=== PATIENT | female | born 1935 | race Caucasian/White ===

== ENCOUNTER 2017-08-23 11:23 | Inpatient (IN) | payer OTHER, MEDICAID ==
[~2017-08-23] VITALS: Ht 157.5 cm; Wt 72.6 kg
[~2017-08-23 11:23] MED LIST: ASPI81EC98 PO; ATOR20TA PO; CALC500T31 PO; CARI350T PO; DEXILANT PO; DOCU-7 PO; DOXA1TAB2 PO; FLUT27.5 NS; LEVO0.1T19 PO; LORA10TA60 PO; MONT10TA35 PO; NORT10CA PO; OLME40TA11 PO; OMEP20EC6 PO; PRE.625 PO; PREG100C PO; SUMA100T1 PO; TEMA30CA23 PO; VIC PO; [UNRECOGNIZED DRUG - CODE] PO; [UNRECOGNIZED DRUG - CODE] PO; [UNRECOGNIZED DRUG - CODE] PO
--- NOTE | 2017-08-23 11:27 | NUR ---
CALLED CT FOR CODE BRAIN PER MD FOOTE
[2017-08-23 11:30] VITALS: BP 209/85
--- NOTE | 2017-08-23 11:34 | NUR ---
82Y/F BIB DAUGHTER; COMPLAINS OF LEFT SIDED WEAKNESS, POSSIBLE STROKE. PATIENT HISORY OF TIA A MONTH AGO AND HTN. AAOX4 WITH EVEN AND STEADY; PATIENT STATES PAIN OF 0/10 AT THIS TIME; PATIENT POSITIONED FOR COMFORT; HOB ELEVATED; BEDRAILS UP X2; BED DOWN. ER MD MADE AWARE OF PT STATUS.
[2017-08-23] MEDS ORDERED: ESCI20TA PO (11:38)
[2017-08-23] MEDS ORDERED: ALEN70SO1 PO (11:38)
[2017-08-23] MEDS ORDERED: [UNRECOGNIZED DRUG - CODE] PO (11:38)
[2017-08-23] MEDS ORDERED: PAM25 PO (11:38)
[2017-08-23] MEDS ORDERED: hydrALAZINE 20 MG/ML VIAL IVP ONE (11:45)
[2017-08-23 12:05] LABS: BASOPHILS # (AUTO) 0.1 K/uL (0.00-0.22); BASOPHILS % (AUTO) 1.5 % (0.0-2.0); EOSINOPHILS # (AUTO) 0.2 K/uL (0-0.4); EOSINOPHILS % (AUTO) 3.2 % (0.0-4.0); HEMATOCRIT 39.7 % (36-48); HEMOGLOBIN 13.2 g/dL (12.0-16.0); LYMPHOCYTES # (AUTO) 2.8 K/uL (2.5-16.5); LYMPHOCYTES % (AUTO) 41.5 % (20.5-51.1); MEAN CORPUSCULAR HEMOGLOBIN 31 pg (27-31); MEAN CORPUSCULAR HGB CONC 33 g/dL (33-37); MEAN CORPUSCULAR VOLUME 94.3 fL (80-94); MONOCYTES # (AUTO) 0.6 K/uL (0.8-1.0); MONOCYTES % (AUTO) 9.4 % (1.7-9.3); NEUTROPHILS % (AUTO) 44.4 % (42.2-75.2); PLATELET COUNT (AUTO) 217 K/uL (140-450); RED BLOOD CELL COUNT(AUTO) 4.21 MIL/uL (4.20-5.40); RED CELL DISTRIBUTION WIDTH 12.2 % (11.6-13.7); WHITE BLOOD COUNT (AUTO) 6.7 K/uL (4.8-10.8)
[2017-08-23 12:16] LABS: PROTHROMBIN TIME 9.6 secs (10.8-13.4)
[2017-08-23] MEDS ORDERED: ASPIRIN 325 MG TAB PO ONE (12:25)
[2017-08-23] MEDS ORDERED: LABETALOL 100 MG/20 ML VIAL IV STA (13:03)
--- NOTE | 2017-08-23 13:14 | NUR ---
Patient will be admitted to care of DR. RODRIGUEZ. Admited to MS. Will go to [id number]. Belongings list completed. Report to ENEIDA HIGGINBOTHAM.
--- NOTE | 2017-08-23 13:15 | NUR ---
PT ARRIVED ON UNIT VIA GURNEY BUT PATIENT WAS ABLE TO AMBULATE FROM GURNEY TO BED WITHOUT DIFFICULTIES. TELEMONITOR APPLIED. VS GATHERED. MRSA SWAB COLLECTED. PATIENT ALERT AND ABLE TO MAKE NEEDS KNOWN. NO ACUTE DISTRESS NOTED AT THIS TIME. PATIENT STATED 8/10 PAIN TO BACK BUT IS BASELINE AND STATED SHE DID NOT NEED MEDICATION AT THIS TIME. VS ARRIVING ON UNIT 200/84 AND HAD JUST RECEIVED APRESOLINE AND LABETALOL IN ER WILL CONT TO MONITOR. PATIENT STATED HX OF TIA, HTN, RHEUMATOID ARTHRITIS, OA, HYPOTHYROIDISM, COPD, GOUT, TMJ. PATIENT STATED RIGHT HAND TINGLING HANG BRIDGE MECHANIC UNEQUAL RIGHT HAND STRONGER. FOOT PUSHES AND PULL EQUAL. PERRLA.3MM. PATIENT WITH LAC 20G SL. PATENT AND INTACT. PATIENT ORIENTED TO ROOM. SKIN INTACT.PLAN OF CARE DISCUSSED WITH PATIENT. CALL LIGHT WITHIN REACH. WILL CONT TO MONITOR.
[2017-08-23] MEDS ORDERED: LORazepam 2 MG/ML VIAL IVP PRN (13:35)
[2017-08-23] MEDS ORDERED: ONDANSETRON 4 MG/2 ML VIAL IVP PRN (13:35)
[2017-08-23] MEDS ORDERED: [UNRECOGNIZED DRUG - OTHER] PO SCH (13:35)
[2017-08-23] MEDS ORDERED: SUMAtriptan 50 MG TAB PO PRN (13:35)
[2017-08-23] MEDS ORDERED: ACETAMINOPHEN PO SCH ×2 (13:35→17:00)
[2017-08-23 13:36] LABS: CREATINE KINASE MB 0.5 ng/mL (0-3.6)
[2017-08-23 14:00] VITALS: BP 190/80
[2017-08-23 14:31] LABS: ANION GAP 16.7 (8-16); CARBON DIOXIDE 22.3 mmol/L (21-32); CHLORIDE 108 mmol/L (98-107); GLUCOSE 93 mg/dL (74-106); SODIUM SERUM 143 mmol/L (136-145)
[2017-08-23 14:32] LABS: UREA NITROGEN, BLOOD 32 mg/dL (7-18)
[2017-08-23 14:46] LABS: ALBUMIN 3.3 g/dL (3.4-5.0); ASPARTATE AMINOTRANSFERASE 33 U/L (15-37); CREATININE 1.3 mg/dL (0.6-1.3); TOTAL BILIRUBIN 0.2 mg/dL (0.0-1.0)
--- NOTE | 2017-08-23 15:30 | NUR ---
PATIENT ALERT AND ABLE TO MAKE NEEDS KNOWN. PATIENT GIVEN IMATREX FOR MIRGRAINE. WILL FOLLOW UP. PATIENT BP AT THIS TIME 184/72 HR 59. WILL CONT TO MONITOR.
[2017-08-23 16:00] VITALS: BP 173/73
--- NOTE | 2017-08-23 16:00 | NUR ---
PATIENT ALERT AND ABLE TO MAKE NEEDS KNOWN. REQUESTING MEDICATIONS. WILL ADMINISTERED SCHEDULED MEDICATIONS. BP 173/73 HR 59. WILL CONT TO MONITOR.
[2017-08-23] MEDS: ACETAMINOPHEN EXTRA STRENGTH 500 MG TAB PO SCH ×2 (16:40→21:13)
[2017-08-23] MEDS: CARISOPRODOL 350 MG TAB PO SCH (16:40)
[2017-08-23] MEDS ORDERED: OXYCODONE HCL PO SCH (17:00)
--- NOTE | 2017-08-23 18:09 | NUR ---
ECHO IN PROCESS AT THIS TIME. NO ACUTE DISTRESS. CALL LIGHT WITHIN REACH. WILL CONT TO MONITOR.
--- NOTE | 2017-08-23 19:30 | NUR ---
ENDORSED REPORT AT BEDSIDE FOR CONTINUITY OF CARE. PATIENT STABLE.
--- NOTE | 2017-08-23 19:35 | NUR ---
RECEIVED FROM AM RN IN BED AWAKE AND WITH FRIEND VISITING. ABLE TO VERBALIZE NEEDS WELL. A/O X 4. ROM X 4. CARE PLANS FOR THE NIGHT DISCUSSED WITH HER. CALL LIGHT WITH IN REACH AND DX. TRANSIENT ISCHEMIA. ENCOURAGED TO CALL FOR ANY HELP OR ANY PAIN SHE MIGHT HAVE.
[2017-08-23 19:56] VITALS: BP 148/62
[2017-08-23] MEDS: DOXAZOSIN 2 MG TAB PO SCH (21:00)
[2017-08-23] MEDS ORDERED: CARISOPRODOL 350 MG TAB PO SCH (22:45)
--- NOTE | 2017-08-23 22:45 | NUR ---
TALKED WITH MD RODRIGUEZ,Bobby RE: PT. WANTING TO HAVE HER SOMA 350 MG. "I TAKE IT AT HOME 4 TIMES A DAY" ORDERED 1X NOW AND STATED "NO" IT WILL ONLY BE 3 TIMES A DAY. INFORMED HIM THAT WE HAVE NO AVAILABLE CARDURA AND IF HE CAN ORDER A DIFFERENT BRAND WITH SAME ACTION. " NO, LEAVE IT IS AND GIVE FIRST DOSE IN A.M. " NIGHTMAN AWARE. PT. AWARE OF IT TOO.
[2017-08-24 01:08] VITALS: BP 149/60
[2017-08-24 04:40] VITALS: BP 174/73
--- NOTE | 2017-08-24 04:45 | NUR ---
PT. AWAKE STILL AT THIS TIME AND REQUESTED TO HAVE SOMETHING TO RELAX HER. WILL MEDICATE WITH ATIVAN IVP ORDERED.
[2017-08-24] MEDS: LEVOTHYROXINE 0.1 MG TAB PO SCH (05:44)
[2017-08-24] MEDS: PANTOPRAZOLE 40 MG TABEC PO SCH (05:45)
--- NOTE | 2017-08-24 06:00 | NUR ---
PT. SLEPT WELL AFTER ATIVAN IVP GIVEN REQUESTED. WAKES UP WHEN TOUCHED. NO PAIN COMPLAINTS.
[2017-08-24 06:29] LABS: BASOPHILS # (AUTO) 0.1 K/uL (0.00-0.22); BASOPHILS % (AUTO) 0.8 % (0.0-2.0); EOSINOPHILS # (AUTO) 0.2 K/uL (0-0.4); EOSINOPHILS % (AUTO) 2.6 % (0.0-4.0); HEMATOCRIT 38.3 % (36-48); HEMOGLOBIN 12.9 g/dL (12.0-16.0); LYMPHOCYTES % (AUTO) 27.2 % (20.5-51.1); MEAN CORPUSCULAR HEMOGLOBIN 32 pg (27-31); MEAN CORPUSCULAR HGB CONC 34 g/dL (33-37); MEAN CORPUSCULAR VOLUME 93.9 fL (80-94); MONOCYTES # (AUTO) 0.5 K/uL (0.8-1.0); MONOCYTES % (AUTO) 6.8 % (1.7-9.3); NEUTROPHILS # (AUTO) 4.5 K/uL (1.8-7.7); NEUTROPHILS % (AUTO) 62.6 % (42.2-75.2); PLATELET COUNT (AUTO) 214 K/uL (140-450); RED BLOOD CELL COUNT(AUTO) 4.08 MIL/uL (4.20-5.40); RED CELL DISTRIBUTION WIDTH 12.2 % (11.6-13.7); WHITE BLOOD COUNT (AUTO) 7.2 K/uL (4.8-10.8)
[2017-08-24 07:03] LABS: MAGNESIUM 1.9 mg/dL (1.8-2.4); PHOSPHORUS 3.1 mg/dL (2.5-4.9)
[2017-08-24 08:00] VITALS: BP 171/118
--- NOTE | 2017-08-24 08:00 | NUR ---
INITIAL ASSESSMENT PERFORMED. PATIENT ALERT AND ABLE TO MAKE NEEDS KNOWN. NO ACUTE DISTRESS NOTED AT THIS TIME. PATIENT STATED PAIN AT BASELINE AND DID NOT NEED ANY PAIN MEDICATION AT THIS TIME. PATIENT STATED LEFT HAND TINGLING AND NUMB BUT HAS IMPROVED SINCE YESTERDAY. FOOT PUSHES AND PULL EQUAL. PERRLA.3MM. PATIENT WITH LAC 20G SL. PATENT AND INTACT. PATIENT ORIENTED TO ROOM. SKIN INTACT.PLAN OF CARE DISCUSSED WITH PATIENT. CALL LIGHT WITHIN REACH. WILL CONT TO MONITOR.
[2017-08-24] MEDS ORDERED: NORTRIPTYLINE 25 MG CAP PO SCH (09:00)
[2017-08-24] MEDS ORDERED: ECOTRIN 81 MG TABEC PO SCH (09:00)
[2017-08-24] MEDS ORDERED: ALENDRONATE SODIUM 70 MG PO SCH (09:00)
[2017-08-24] MEDS ORDERED: ASPIRIN 325 MG TABEC PO SCH (09:00)
[2017-08-24] MEDS: CARISOPRODOL 350 MG TAB PO SCH ×3 (09:01→17:32)
[2017-08-24] MEDS: ACETAMINOPHEN EXTRA STRENGTH 500 MG TAB PO SCH ×4 (09:01→21:56)
[2017-08-24] MEDS: NORTRIPTYLINE 10 MG CAP PO SCH (09:02)
[2017-08-24] MEDS: ATORVASTATIN 20 MG TAB PO SCH (09:02)
[2017-08-24] MEDS: ESTROGENS CONJUGATED 0.625 MG TAB PO SCH (09:02)
[2017-08-24] MEDS: ESCITALOPRAM 20 MG TAB PO SCH (09:03)
[2017-08-24] MEDS: LOSARTAN 50 MG TAB PO SCH (09:03)
[2017-08-24] MEDS: COLCHICINE 0.6 MG TAB PO SCH (09:04)
[2017-08-24] MEDS: FLUTICASONE NASAL 50 MCG/ACTUATION 16 GM BTL NS SCH (09:04)
[2017-08-24] MEDS: LORATADINE 10 MG TAB PO SCH (09:04)
--- NOTE | 2017-08-24 09:55 | NUR ---
PATIENT HAS BEEN SCREENED AND CATEGORIZED HIGH NUTRITION RISK. PATIENT WILL BE SEEN WITHIN 1-2 DAYS OF ADMISSION. 08/24/17 - 08/25/[address]
[2017-08-24] MEDS: DOXAZOSIN 2 MG TAB PO SCH ×2 (09:58→21:54)
--- NOTE | 2017-08-24 10:30 | NUR ---
PATIENT ALERT AND ABLE TO MAKE NEEDS KNOWN. NO ACUTE DISTRESS NOTED. NO NEUROLOGICAL CHANGES NOTED. PATIENT RESPONDS APPROPRIATELY TO QUESTIONS. WILL CONT TO MONITOR.
[2017-08-24] MEDS ORDERED: amLODIPine 5 MG TAB PO SCH (11:00)
[2017-08-24 12:00] VITALS: BP 126/56
--- NOTE | 2017-08-24 13:00 | NUR ---
PATIENT ALERT AND ABLE TO MAKE NEEDS KNOWN. NO ACUTE DISTRESS NOTED. RESTING IN BED. WILL CONT TO MONITOR.
--- NOTE | 2017-08-24 13:48 | NUR ---
DR DAWN CALLED TO [facility] CT OF HEAD STATING IT IS NOT NECESSARY, BECAUSE PATIENT IS STABLE AND ASSESSMENT IS WNL WITH THE EXCEPTION OF THE LEFT HAND TINGLING. WILL CONT TO MONITOR
--- NOTE | 2017-08-24 15:50 | NUR ---
08/24/17 RD INITIAL ASSESSMENT COMPLETED PLEASE REFER TO NUTRITION ASSESSMENT UNDER CARE ACTIVITY FOR ESTIMATED NUTRITIONAL NEEDS. 1. CONTINUE CARDIAC DIET TOLERATED 2. PROVIDED PT WITH GOUT AND CARDIAC DIET EDUCATION 3. RD TO FOLLOW-UP 5-7 DAYS, LOW RISK ERIC MENCH[address] RD
[2017-08-24 16:00] VITALS: BP 107/44
--- NOTE | 2017-08-24 16:30 | NUR ---
PATIENT ALERT AND ABLE TO MAKE NEEDS KNOWN. NO ACUTE DISTRESS NOTED. PATIENT RESTING IN BED. WILL CONT TO MONITOR.
--- NOTE | 2017-08-24 19:30 | NUR ---
ENDORSED REPORT TO SEWING MACHINE OPERATOR FLOORPERSON NURSE AT BEDSIDE FOR CONTINUITY OF CARE. PATIENT STABLE.
--- NOTE | 2017-08-24 19:35 | NUR ---
RECEIVED FROM AM NURSE SLEEPING. ABLE TO WAKE UP WHEN TOUCHED. NO COMPLAINTS AT THIS TIME. RE-ORIENTED TO CALL LIGHT USE AND TO CALL FOR ANY HELP SHE MAY NEED. TELEMETRY MONITORING. DENIES PAIN AT THIS TIME.
[2017-08-24] MEDS ORDERED: MONTELUKAST SODIUM 10 MG TAB PO SCH (21:00)
[2017-08-24 21:37] VITALS: BP 120/57
[2017-08-24] MEDS: METOPROLOL 25 MG TAB PO SCH (21:55)
--- NOTE | 2017-08-24 23:31 | NUR ---
PT. SLEEPING WELL. VITAL SIGNS TAKEN AND PT. WOKE UP . NO FURTHER COMPLAINTS DONE. TELEMETRY MONITORING. ABLE TO VERBALIZE NEEDS WELL.
[2017-08-25] VITALS: BP 119/56
--- NOTE | 2017-08-25 02:45 | NUR ---
SLEEPING. NO RESTLESSNESS. CALL LIGHT WITH IN REACH. TELEMETRY MONITORING.
[2017-08-25 04:00] VITALS: BP 105/45
--- NOTE | 2017-08-25 05:37 | NUR ---
PT. SEEN WALKING TOWARDS RESTROOM INSIDE ROOM. INDEPENDENT. VERBALIZES WELL..A FEBRILE. NO PAIN COMPLAINTS DONE THIS SHIFT.
[2017-08-25 05:42] LABS: BASOPHILS # (AUTO) 0.1 K/uL (0.00-0.22); BASOPHILS % (AUTO) 0.9 % (0.0-2.0); EOSINOPHILS # (AUTO) 0.2 K/uL (0-0.4); EOSINOPHILS % (AUTO) 3.5 % (0.0-4.0); HEMOGLOBIN 12.6 g/dL (12.0-16.0); MEAN CORPUSCULAR HEMOGLOBIN 32 pg (27-31); MEAN CORPUSCULAR HGB CONC 34 g/dL (33-37); MONOCYTES # (AUTO) 0.5 K/uL (0.8-1.0); MONOCYTES % (AUTO) 8.3 % (1.7-9.3); NEUTROPHILS % (AUTO) 52.3 % (42.2-75.2); PLATELET COUNT (AUTO) 214 K/uL (140-450); RED BLOOD CELL COUNT(AUTO) 3.98 MIL/uL (4.20-5.40); RED CELL DISTRIBUTION WIDTH 11.9 % (11.6-13.7); WHITE BLOOD COUNT (AUTO) 5.8 K/uL (4.8-10.8)
[2017-08-25] MEDS: LEVOTHYROXINE 0.1 MG TAB PO SCH (05:44)
[2017-08-25] MEDS: PANTOPRAZOLE 40 MG TABEC PO SCH (05:44)
--- NOTE | 2017-08-25 05:54 | NUR ---
PT. AWAKE AND ASSISTED TO RESTROOM RT HELPED TAKE OUT SEQUENTIALS FOR NOW. PT. INDEPENDENT. ABLE TO VERBALIZE NEEDS WELL.
[2017-08-25 06:28] LABS: ANION GAP 13.8 (8-16); CARBON DIOXIDE 25.4 mmol/L (21-32); CHLORIDE 108 mmol/L (98-107); CREATININE 1.3 mg/dL (0.6-1.3); GLUCOSE 110 mg/dL (74-106); POTASSIUM 4.2 mmol/L (3.5-5.1); SODIUM SERUM 143 mmol/L (136-145); UREA NITROGEN, BLOOD 29 mg/dL (7-18)
--- NOTE | 2017-08-25 07:30 | NUR ---
RECEIVED BEDSIDE REPORT FROM SENIOR GRANT WRITER NURSE. PATIENT IS AWAKE, ALERT AND ORIENTEDX4. NO COMPLAINTS AT THIS TIME. IV ON L AC 20G SALINE LOCK. IV IS CLEAN, DRY AND INTACT. NO SIGNS OF DISTRESS ON ROOM AIR. SKIN IS INTACT. CAR DEALER IN PLACE. SCDS IN PLACE. BED IN LOW POSITION. CALL LIGHT WITHIN REACH. WILL CONTINUE TO MONITOR THE PATIENT.
[2017-08-25 08:00] VITALS: BP 158/70
[2017-08-25] MEDS ORDERED: amLODIPine 5 MG TAB PO SCH (09:00)
[2017-08-25] MEDS ORDERED: ECOTRIN 81 MG TABEC PO SCH (09:00)
[2017-08-25] MEDS: FLUTICASONE NASAL 50 MCG/ACTUATION 16 GM BTL NS SCH (09:24)
[2017-08-25] MEDS: CARISOPRODOL 350 MG TAB PO SCH ×2 (09:25→13:42)
[2017-08-25] MEDS: LOSARTAN 50 MG TAB PO SCH (09:25)
[2017-08-25] MEDS: ESCITALOPRAM 20 MG TAB PO SCH (09:26)
[2017-08-25] MEDS: NORTRIPTYLINE 10 MG CAP PO SCH (09:26)
[2017-08-25] MEDS: LORATADINE 10 MG TAB PO SCH (09:27)
[2017-08-25] MEDS: ATORVASTATIN 20 MG TAB PO SCH (09:27)
[2017-08-25] MEDS: ACETAMINOPHEN EXTRA STRENGTH 500 MG TAB PO SCH ×2 (09:27→13:42)
[2017-08-25] MEDS: COLCHICINE 0.6 MG TAB PO SCH (09:28)
[2017-08-25] MEDS: METOPROLOL 25 MG TAB PO SCH (09:28)
[2017-08-25] MEDS: ESTROGENS CONJUGATED 0.625 MG TAB PO SCH (09:30)
--- NOTE | 2017-08-25 09:30 | NUR ---
ADMINISTERED MEDS ORDERED. PATIENT TOLERATED WELL. NO COMPLAINTS AT THIS TIME. WILL CONTINUE TO MONITOR THE PATIENT. CALL LIGHT WITHIN REACH.
[2017-08-25] MEDS: DOXAZOSIN 2 MG TAB PO SCH (09:55)
--- NOTE | 2017-08-25 11:30 | NUR ---
PATIENT HAS NO COMPLAINTS AT THIS TIME. NO SIGNS OF DISTRESS ON ROOM AIR. BED IN LOW POSITION. CALL LIGHT WITHIN REACH.
[2017-08-25 12:00] VITALS: BP 147/61
--- NOTE | 2017-08-25 13:43 | NUR ---
1200 MET WITH PT AT BEDSIDE. PT STATED THAT SHE DOES NOT WANT TO GO TO SNF AND WOULD RATHER GO HOME WITH HOME PHYSICAL THERAPY. PT STATED HAS HAD HOME PT BEFORE BUT DOES NOT REMEMBER THE AGENCY AND AT THIS TIME HAS NO PREFERENCE OF AGENCIES.
--- NOTE | 2017-08-25 13:43 | NUR ---
ADMINISTERED MEDS. PATIENT TOLERATED WELL. NO COMPLAINTS AT THIS TIME. WILL CONTINUE TO MONITOR THE PATIENT.
[2017-08-25] MEDS ORDERED: METO25TA PO (13:51)
[2017-08-25] MEDS ORDERED: AMLO5TAB4 PO (13:51)
--- NOTE | 2017-08-25 14:54 | NUR ---
RECEIVED ORDER FOR HOME HEALTH PT. FAXED ORDER TO [facility] [phone]
--- NOTE | 2017-08-25 15:32 | NUR ---
PHYSICAL THERAPY CO-SIGN The Physical Therapy Progress Notes documented by [employer] have been reviewed. I CONCUR W/TRUCK ENGINE TECHNICIAN NOTE; CONT PER TX PLAN Reviewed/Co-Signed by: Liberty Mejía, PT Documentation Done by: TANO LEAL PTA Addendum: 08/25/17 at 1532 by Liberty Mejía PT Amended: Links added.
--- NOTE | 2017-08-25 15:38 | NUR ---
SPOKE WITH TEODORO FROM [facility]. THEY WILL TAKE THE PATIENT AND START TOMORROW.
[2017-08-25 16:00] VITALS: BP 115/91
--- NOTE | 2017-08-25 16:00 | NUR ---
PATIENT IS AWARE THAT SHE IS GOING TO BE DISCHARGED. TOLD HER TO GET READY AND TO HAVE HER RIDE KNOW. WILL GET PAPER WORK READY. PATIENT HAS NO COMPLAINTS AND IS IN NO DISTRESS ON ROOM AIR. WILL CONTINUE TO MONITOR THE PATIENT.
--- NOTE | 2017-08-25 17:00 | NUR ---
EDUCATED PATIENT AND DAUGHTER ON ABN S/SX AND WHEN TO GO TO THE ER. EDUCATED ON DISEASE PROCESS AND MEDICATIONS. GAVE PRESCRIPTION. PEDUCATED THE PATIENT ON PHYSICAL THERAPY TOMORROW WITH [facility]. PATIENT AND DAUGHTER VERBALIZED UNDERSTANDING. PATIENT SIGNED ALL DISCHARGE PAPER WORK. REMOVED IV. IV WAS INTACT. ID BANDS REMOVED. TELE MONITOR REMOVED. PATIENT WHEELED IN WHEELCHAIR TO CAR. PATIENT LEFT IN STABLE CONDITION.
== END 2017-08-25 17:00 | disposition home health service (06) | DRG 69 ==
LOC: MED 11:23 → MTU 12:32
PROVIDERS: ADMIT Preventive Medicine Preventive Medicine/Occupational Environmental Medicine; ATTEND Preventive Medicine Preventive Medicine/Occupational Environmental Medicine
DX: G45.9 Transient cerebral ischemic attack, unspecified (principal); E88.09 Other disorders of plasma-protein metabolism, not elsewhere classified; E11.9 Type 2 diabetes mellitus without complications; J44.9 Chronic obstructive pulmonary disease, unspecified; I16.0 Hypertensive urgency; E03.9 Hypothyroidism, unspecified; I25.10 Atherosclerotic heart disease of native coronary artery without angina pectoris; I11.9 Hypertensive heart disease without heart failure; F32.9 Major depressive disorder, single episode, unspecified; F41.9 Anxiety disorder, unspecified; Z88.0 Allergy status to penicillin; Z86.73 Personal history of transient ischemic attack (TIA), and cerebral infarction without residual deficits; Z88.8 Allergy status to other drugs, medicaments and biological substances; Z79.1 Long term (current) use of non-steroidal anti-inflammatories (NSAID); Z79.82 Long term (current) use of aspirin; Z79.899 Other long term (current) drug therapy
CPT/HCPCS: 36415; 70450; 71045; 80048; 80053; 82550; 82553; 83735; 84100; 84484; 85025; 85610; 85730; 87081; 93005; 93880; 96374; 96375; 97110; 97116; 97140; 97530; 99285; J0360; J2060; J3490; Q0092

== ENCOUNTER 2018-07-04 03:00 | Inpatient (IN) | payer OTHER ==
[~2018-07-04] VITALS: Ht 157.5 cm; Wt 71.3 kg
[2018-07-04 03:00] VITALS: BP 207/98
[~2018-07-04 03:00] MED LIST changes: +ALEN70SO1 PO; +AMLO5TAB6 PO; -CALC500T31 PO; -DEXILANT PO; -DOCU-7 PO; +ESCI20TA PO; +METO25TA PO; +OMEP-113 PO; -OMEP20EC6 PO; +PAM25 PO; -PREG100C PO; -TEMA30CA23 PO; +[UNRECOGNIZED DRUG - CODE] PO; -[UNRECOGNIZED DRUG - CODE] PO
--- NOTE | 2018-07-04 03:00 | NUR ---
PT JUNIOR BLS. TAKEN TO BED 3
--- NOTE | 2018-07-04 03:30 | NUR ---
PT BIBA C/O HORNE AND HTN. PT STATES SHE WAS HAVING PAIN TO THE BACK OF HER HEAD, SHE HAD DAUGHTER TAKE HER BP AND WAS 209/108 AT HOME, PT DAUGHTER THEN CALLED 911. PT STATES COMPLAINCE TO TAKING PRESCRIBED MEDICATIONS. PT STATES 7/10 PRESSURE/SHARP PAIN TO BACK OF HEAD. --DENIES BLURRED VISION, EPIGASTRIC PAIN, OR N/V/D. AAOX4. CLEAR SPEACH. HAND SOCIAL INSURANCE ADVISER STRONG AND EQUAL BL. FACE SYMETRICAL. CAP REFIL <3. NO EDEMA PRESENT. LUNG SOUND CLEAR BL. BOWEL SOUNDS ACTIVE X4 QUAD. SKIN WARM, DRY AND INTACT. --PT IN GOWN, IN BED; BED IN LOWER LOCKED POSITION. PT ON FAITH HEALER. ER MD MADE AWARE OF PT STATUS. WILL CONTINUE TO MONITOR. PMH: HTN, COPD, CVA, GOUT, ARTHRITIS, TMJ RX: SEE LIST
[2018-07-04 03:35] LABS: BASOPHILS # (AUTO) 0.1 K/uL (0.00-0.22); BASOPHILS % (AUTO) 0.9 % (0.0-2.0); EOSINOPHILS # (AUTO) 0.2 K/uL (0-0.4); EOSINOPHILS % (AUTO) 2.4 % (0.0-4.0); HEMATOCRIT 45.7 % (36-48); HEMOGLOBIN 15.4 g/dL (12.0-16.0); LYMPHOCYTES # (AUTO) 2.1 K/uL (2.5-16.5); LYMPHOCYTES % (AUTO) 29.3 % (20.5-51.1); MEAN CORPUSCULAR HEMOGLOBIN 32 pg (27-31); MEAN CORPUSCULAR HGB CONC 34 g/dL (33-37); MEAN CORPUSCULAR VOLUME 94.3 fL (80-94); MONOCYTES # (AUTO) 0.5 K/uL (0.8-1.0); MONOCYTES % (AUTO) 7.2 % (1.7-9.3); NEUTROPHILS # (AUTO) 4.3 K/uL (1.8-7.7); NEUTROPHILS % (AUTO) 60.2 % (42.2-75.2); PLATELET COUNT (AUTO) 232 K/uL (140-450); RED BLOOD CELL COUNT(AUTO) 4.84 MIL/uL (4.20-5.40); RED CELL DISTRIBUTION WIDTH 12.7 % (11.6-13.7); WHITE BLOOD COUNT (AUTO) 7.1 K/uL (4.8-10.8)
[2018-07-04 03:43] LABS: ANION GAP 8.9 (8-16); CARBON DIOXIDE 31.2 mmol/L (21-32); CHLORIDE 107 mmol/L (98-107); CREATININE 1.1 mg/dL (0.6-1.3); GLUCOSE 110 mg/dL (74-106); POTASSIUM 4.1 mmol/L (3.5-5.1); SODIUM SERUM 143 mmol/L (136-145); UREA NITROGEN, BLOOD 28 mg/dL (7-18)
[2018-07-04 03:45] LABS: PROTHROMBIN TIME 9.4 secs (10.8-13.4)
[2018-07-04 03:49] LABS: ALBUMIN 3.6 g/dL (3.4-5.0); ASPARTATE AMINOTRANSFERASE 19 U/L (15-37); TOTAL BILIRUBIN 0.3 mg/dL (0.0-1.0)
[2018-07-04 03:55] LABS: CREATINE KINASE MB 0.9 ng/mL (0-3.6)
[2018-07-04] MEDS ORDERED: ONDANSETRON 4 MG/2 ML VIAL IM/IVP PRN (05:20)
[2018-07-04] MEDS ORDERED: MORPHINE SULFATE 2 MG/ML SYR IVP PRN (05:20)
[2018-07-04] MEDS ORDERED: KETOROLAC 30 MG/ML VIAL IVP ONE (05:20)
[2018-07-04] MEDS ORDERED: DOCUSATE SODIUM 100 MG GELCAP PO PRN (05:20)
[2018-07-04] MEDS ORDERED: HYDROcodone/APAP 7.5/325 MG 1 TAB PO PRN (05:20)
[2018-07-04 05:37] LABS: APPEARANCE,URINE CLEAR (CLEAR); BILIRUBIN,URINE NEGATIVE (NEGATIVE); BLOOD, URINE NEGATIVE (NEGATIVE); COLOR,URINE YELLOW (YELLOW); LEUKOCYTE ESTERASE ,URINE TRACE (NEGATIVE); NITRITE, URINE NEGATIVE (NEGATIVE); UGLUCOSE NEGATIVE (NEGATIVE)
[2018-07-04] MEDS ORDERED: KETOROLAC 30 MG/ML VIAL ONE (05:47)
[2018-07-04 06:06] LABS: RBC,URINE NONE SEEN /HPF (0-5); WBC,URINE 0 /HPF (0-5)
--- NOTE | 2018-07-04 06:10 | NUR ---
[facility] WITH ASSIST. TELE MONITOR APPLIED. NO COMPLAINS. ORIENTED TO ROOM AND UNIT ROUTINES. CALL LIGHT WITHIN REACH.
[2018-07-04 06:14] LABS: CHOL/HDL RATIO 4.4 (1-4.5); MAGNESIUM 1.9 mg/dL (1.8-2.4); PHOSPHORUS 3.3 mg/dL (2.5-4.9); THYROID STIMULATING HORMONE 1.47 uIU/mL (0.34-3.74)
--- NOTE | 2018-07-04 06:14 | NUR ---
Patient will be admitted to care of Dr. Mcrae. Admited to Tele. Patient went to room 111-B by anthony. Belongings list completed. Report to NEFTALY Magallanes.
--- NOTE | 2018-07-04 06:24 | NUR ---
BP-190/80, HR-60, TEMP-97.6, RR-20. RESIDENT MD AT BEDSIDE MADE AWARE OF BP, WILL ORDER MEDS FOR BP.
[2018-07-04] MEDS ORDERED: LOSARTAN 50 MG TAB PO SCH (07:00)
[2018-07-04] MEDS ORDERED: METOPROLOL 25 MG TAB PO SCH (07:00)
[2018-07-04] MEDS ORDERED: amLODIPine 5 MG TAB PO SCH (07:00)
[2018-07-04] MEDS ORDERED: amLODIPine 5 MG TAB ONE (07:08)
--- NOTE | 2018-07-04 07:29 | NUR ---
ENDORSED CARE AT BEDSIDE WITH SOLITARIO RN, PATIENT IN STABLE CONDITION.
--- NOTE | 2018-07-04 07:30 | NUR ---
RECEIVED BEDSIDE REPORT FROM AGRICULTURAL PRODUCE PACKER NURSE. PATIENT IS AWAKE, ALERT AND ORIENTEDX4. NO SIGNS OF DISTRESS ON RA. SKIN IS INTACT, PATIENT IS AMBULATORY W ASSISTANCE. PATIENT HAS WEAKNESS. FALL RISK PROTOCOL IN PLACE. PATIENT IS CONTINENT. TELE MONITOR IN PLACE. L AC 18G SL. CLEAN, DRY AND INTACT. NO COMPLAINTS AT THIS TIME. BED IN LOW POSITION. CALL LIGHT WITHIN REACH. WILL CONTINUE TO MONITOR THE PATIENT.
[2018-07-04 08:00] VITALS: BP 142/50
--- NOTE | 2018-07-04 08:25 | NUR ---
PATIENT HAS BEEN SCREENED AND CATEGORIZED MODERATE NUTRITION RISK. PATIENT WILL BE SEEN WITHIN 3-5 DAYS OF ADMISSION. 07/06/18AYAN THOR[address]
[2018-07-04] MEDS ORDERED: NORTRIPTYLINE HCL 10 MG PO SCH (09:00)
--- NOTE | 2018-07-04 09:31 | NUR ---
DR CONTRERAS SAID TO HOLD ALL MORNING B/P AT THIS TIME. DONT WANT TO DROP B/P TOO LOW
[2018-07-04] MEDS: NACL 0.9% 1,000 ML IV SCH (10:19)
[2018-07-04] MEDS: ESCITALOPRAM 20 MG TAB PO SCH (10:25)
[2018-07-04] MEDS: COLCHICINE 0.6 MG TAB PO SCH (10:25)
[2018-07-04] MEDS: CARISOPRODOL 350 MG TAB PO SCH ×3 (10:26→16:20)
[2018-07-04] MEDS: NORTRIPTYLINE 10 MG CAP PO SCH (10:32)
--- NOTE | 2018-07-04 10:35 | NUR ---
ADMINISTERED MEDS. PATIENT TOLERATED WELL. WILL CONTINUE TO MONITOR THE PATIENT
[2018-07-04] MEDS ORDERED: NORTRIPTYLINE 10 MG CAP ONE (10:41)
[2018-07-04] MEDS ORDERED: ALBUTEROL SULFATE/IPRATROPIU 3 ML SOL IH PRN (11:45)
[2018-07-04 12:00] VITALS: BP 127/53
--- NOTE | 2018-07-04 12:46 | NUR ---
ADMINISTERED MED. PATIENT TOLERATED WELL. WILL CONTINUE TO MONITOR. PATIENT AMBULATED TO THE RESTROOM AND BACK
[2018-07-04] MEDS ORDERED: CARISOPRODOL 350 MG TAB ONE (12:50)
[2018-07-04] MEDS ORDERED: hydrALAZINE 20 MG/ML VIAL IVP PRN (13:15)
[2018-07-04] MEDS ORDERED: POLYETHYLENE GLYCOL 17 GM/PKT PO SCH (13:50)
[2018-07-04 14:00] VITALS: BP 132/58
[2018-07-04] MEDS ORDERED: POLYETHYLENE GLYCOL 17 GM/PKT ONE (14:47)
--- NOTE | 2018-07-04 14:58 | NUR ---
PATIENT LAYING IN BED. NO SIGNS OF DISTRESS. ELECTRONIC TECHNOLOGIST AT BEDSIDE. WILL CONTINUE TO MONITOR THE PATIENT
[2018-07-04 16:00] VITALS: BP 146/64
[2018-07-04] MEDS: ACETAMINOPHEN 325 MG TAB PO PRN ×2 (16:19→22:19)
[2018-07-04] MEDS: SUMAtriptan 50 MG TAB PO PRN (16:19)
--- NOTE | 2018-07-04 16:22 | NUR ---
ADMINISTERED MEDS. PATIENT TOLERATED WELL. PATIENT HAS MIGRAINES. GAVE PATIENT TYLENOL AND PRN MIGRAINE MED. WILL CONTINUE TO MONITOR
--- NOTE | 2018-07-04 18:45 | NUR ---
PATIENT IS IN NO DISTRESS. PATIENT LAYING IN BED. WILL CONTINUE TO MONITOR
--- NOTE | 2018-07-04 19:05 | NUR ---
GAVE BEDSIDE REPORT TO ON LINE CSR NURSE. PATIENT ENDORSED IN STABLE CONDITION
--- NOTE | 2018-07-04 19:10 | NUR ---
RECEIVED PT IN STABLE CONDITION FROM AM NURSE. AWAKE,ALERT AND ORIENTED X4. ON TELE -SB. WITH NO C/O ANY DISCOMFORT NOR PAIN NOTED AT THIS TIME. IVF INFUSING WELL ON THE LT AC G#18. CLEAR AND PATENT. PLAN OF CARE DISCUSSED AND VERBALIZED UNDERSTANDING. BED ON LOWEST POSITION. FREQUENT ROUNDS NEEDED. CALL LIGHT PLACED WITHI E ASY REACH. DUE TO MILD WEAKNESS , BED ALARM ON. INSTRUCTED TO CALL BEFORE GETTING UP TO THE BATHROOM AND FOR ANY OTHER NEEDS. WILL CONTINUE TO MONITOR.
[2018-07-04 20:00] VITALS: BP 123/54
[2018-07-04] MEDS: METOPROLOL 25 MG TAB PO SCH (21:00)
--- NOTE | 2018-07-04 22:10 | NUR ---
ASSISTED UP TO THE BATHROOM. VOIDED AND HAD A BOWEL MOVEMENT.
[2018-07-04] MEDS ORDERED: PNEUMOCOCCAL VACCINE 23 MCG/0.5 ML VIAL IMVAC PRN (22:55)
[2018-07-05] VITALS (8 sets, daily range): BP systolic 112–186; BP diastolic 45–69
--- NOTE | 2018-07-05 00:20 | NUR ---
MADE ROUNDS. PT ASLEEP. ABLE TO GET VITAL SIGNS STABLE . NO C/O ANY PAIN NOTED.
[2018-07-05] MEDS: NACL 0.9% 1,000 ML IV SCH ×4 (01:04→23:46)
--- NOTE | 2018-07-05 01:46 | NUR ---
MADE ROUNDS. PT SLEEPING. NO S/S FO ANY DISCOMFORT NOR PAIN NOTED.
--- NOTE | 2018-07-05 03:20 | NUR ---
IV ACCESS ON THE LT AC G#18 ,INFILTRATED,LEAKING. DISCONTINUED. ABLE TO START A NEW IV ON RT WRIST G#22,CLEAR AND PATENT.
--- NOTE | 2018-07-05 04:00 | NUR ---
PT HR ON THE TELE MONITOR -SB 49. PT IS ASYMPTOMATIC. NO CHEST PAIN NOTED. WILL CONTINUE TO MONITOR.
[2018-07-05] MEDS: SUMAtriptan 50 MG TAB PO PRN (05:10)
--- NOTE | 2018-07-05 06:00 | NUR ---
PT HAS BEEN ASSISTED UP TO TH BATHROOM. ABLE TO AMBULATE JUST WITH STANDBY ASSIST.
[2018-07-05] MEDS: LEVOTHYROXINE 0.1 MG TAB PO SCH (06:01)
--- NOTE | 2018-07-05 07:14 | NUR ---
RECEIVED BEDSIDE REPORT FROM RN PRATIK. PT STABLE, AWAKE, AND ALERT AND ORIENTED X4. NO SIGNS OF DISTRESS NOTED. DENIES PAIN. NO REDNESS, SWELLING, OR INFLAMMATION NOTED ON IV SITE. BED IN LOWEST POSITION. CALL MURPHY WITHIN REACH. SAFETY MEASURES IN PLACE. PLAN OF CARE REVIEWED.
--- NOTE | 2018-07-05 07:15 | NUR ---
ENDORSED PT IN STABLE CONDITION TO AM NURSE.
--- NOTE | 2018-07-05 08:25 | NUR ---
RECEIVED PATIENT ON ROOM AIR, PULSE OX SAT 96%. NO SIGNS OF SOB. PATIENT STATES SHE "DOES NOT NEED A BREATHING TREATMENT AT THIS TIME." BREATH SOUNDS CLEAR. NO HHN INDICATED AT THIS TIME. NO RESPIRATORY DISTRESS NOTED. WILL CONTINUE TO MONITOR.
[2018-07-05] MEDS: POLYETHYLENE GLYCOL 17 GM/PKT PO SCH (08:46)
[2018-07-05] MEDS: amLODIPine 5 MG TAB PO SCH (08:46)
[2018-07-05] MEDS: COLCHICINE 0.6 MG TAB PO SCH (08:47)
[2018-07-05] MEDS: ESCITALOPRAM 20 MG TAB PO SCH (08:49)
[2018-07-05] MEDS: METOPROLOL 25 MG TAB PO SCH ×2 (08:49→09:00)
[2018-07-05] MEDS: NORTRIPTYLINE 10 MG CAP PO SCH (08:49)
[2018-07-05] MEDS: CARISOPRODOL 350 MG TAB PO SCH ×3 (08:59→16:08)
[2018-07-05] MEDS ORDERED: LOSARTAN 50 MG TAB PO SCH (09:00)
--- NOTE | 2018-07-05 09:00 | NUR ---
BP RECHECKED, BP WENT DOWN TO 116/65. ADMINISTERED SCHEDULED MEDICATIONS. PT TOLERATED WELL. NO OTHER NEEDS AT THIS TIME. Addendum: 07/05/18 at 1453 by Lela Serrano RN SCHEDULED METOPROLOL NOT GIVEN DUE TO HR 53.
[2018-07-05] MEDS ORDERED: hydrALAZINE 20 MG/ML VIAL IVP PRN (10:15)
--- NOTE | 2018-07-05 10:40 | NUR ---
PT AMBULATED WITH UNSTEADY GAIT, ASSISTED PT TO THE BATHROOM.
--- NOTE | 2018-07-05 12:16 | NUR ---
VITAL SIGNS TAKEN. ADMINISTERED SCHEDULED MEDICATION, PT TOLERATED WELL. DAUGHTER AT BEDSIDE.
--- NOTE | 2018-07-05 14:30 | NUR ---
PT STABLE, SLEEPING, BUT EASILY AROUSABLE. NO OTHER NEEDS AT THIS TIME.
[2018-07-05 14:55] LABS: BASOPHILS # (AUTO) 0.1 K/uL (0.00-0.22); EOSINOPHILS # (AUTO) 0.2 K/uL (0-0.4); EOSINOPHILS % (AUTO) 3.6 % (0.0-4.0); HEMATOCRIT 38.2 % (36-48); HEMOGLOBIN 12.9 g/dL (12.0-16.0); LYMPHOCYTES # (AUTO) 1.8 K/uL (2.5-16.5); LYMPHOCYTES % (AUTO) 32.3 % (20.5-51.1); MEAN CORPUSCULAR HEMOGLOBIN 31 pg (27-31); MEAN CORPUSCULAR HGB CONC 34 g/dL (33-37); MONOCYTES # (AUTO) 0.4 K/uL (0.8-1.0); MONOCYTES % (AUTO) 7.9 % (1.7-9.3); NEUTROPHILS % (AUTO) 55.2 % (42.2-75.2); PLATELET COUNT (AUTO) 202 K/uL (140-450); RED BLOOD CELL COUNT(AUTO) 4.11 MIL/uL (4.20-5.40); RED CELL DISTRIBUTION WIDTH 12.5 % (11.6-13.7); WHITE BLOOD COUNT (AUTO) 5.5 K/uL (4.8-10.8)
[2018-07-05 15:06] LABS: ALBUMIN 2.8 g/dL (3.4-5.0); ASPARTATE AMINOTRANSFERASE 12 U/L (15-37); CARBON DIOXIDE 28.8 mmol/L (21-32); CHLORIDE 111 mmol/L (98-107); CREATININE 1.1 mg/dL (0.6-1.3); GLUCOSE 112 mg/dL (74-106); MAGNESIUM 1.8 mg/dL (1.8-2.4); PHOSPHORUS 3.1 mg/dL (2.5-4.9); POTASSIUM 3.8 mmol/L (3.5-5.1); SODIUM SERUM 145 mmol/L (136-145); TOTAL BILIRUBIN 0.2 mg/dL (0.0-1.0); UREA NITROGEN, BLOOD 28 mg/dL (7-18)
--- NOTE | 2018-07-05 15:50 | NUR ---
DR. CONTRERAS AT BEDSIDE.
[2018-07-05] MEDS: ACETAMINOPHEN 325 MG TAB PO PRN ×2 (16:08→23:52)
--- NOTE | 2018-07-05 16:10 | NUR ---
VITAL SIGNS TAKEN, ADMINISTERED SCHEDULED MEDICATION AND PRN TYLENOL FOR 11/07 HEADACHE. PT REFUSED PRN NORCO. NO OTHER NEEDS AT THIS TIME.
[2018-07-05] MEDS ORDERED: LOSA50TA1 PO (17:17)
--- NOTE | 2018-07-05 17:50 | NUR ---
PT STABLE, SLEEPING, BUT EASILY AROUSABLE. NO OTHER NEEDS AT THIS TIME.
--- NOTE | 2018-07-05 19:10 | NUR ---
ENDORSED PT TO RN PRATIK FOR CONTINUITY OF CARE. PT STABLE, AWAKE, AND ALERT.
--- NOTE | 2018-07-05 19:15 | NUR ---
RECEIVED PT IN STABLE CONDITION FROM AM NURSE. AWAKE,ALERT AND ORIENTED X4. ON TELE MONITOR -SB. DAUGHTER AT BEDSIDE. NO C/O ANY DISCOMFORT NOR PAIN AT THIS TIME. HORNE SIVF INFUSING WELL ON THE RT WRIST G#22. CLEAR AND PATENT. PLAN OF CARE DISCUSSED AND VERBALIZED UNDERSTANDING. CALL LIGHT WIHTIN EASY REACH. BED IN LOWEST POSITION. INSTRUCTED TO CALL FOR ANY ASSISTANCE. FREQUENT ROUNDS NEEDED. WILL CONTINUE TO MONITOR.
--- NOTE | 2018-07-05 21:00 | NUR ---
PT IS ASLEEP. AT THIS TIME. NO S/S OF ANY DISCOMFORT NOTED.
--- NOTE | 2018-07-05 23:00 | NUR ---
MADE ROUNDS. PT IS ASLEEP. NO S/S OF ANY DISCOMFORT NOR PAIN NOTED.
--- NOTE | 2018-07-06 01:00 | NUR ---
PT IS ASLEEP. NO MORE S/S OF ANY HEADACHE NOTED. WILL CONTINUE TO MONITOR.
--- NOTE | 2018-07-06 03:00 | NUR ---
MADE ROUNDS. ASLEEP. NO S/S OF ANY PAIN NOTED. WILL CONTINUE TO MONITOR.
[2018-07-06 04:24] VITALS: BP 190/79
--- NOTE | 2018-07-06 04:29 | NUR ---
BLOOD PRESSURE ELEVATED 190/79.HR -61. PT IS ASYMPTOMATIC. MEDICATED WITH APRESOLINE 10 MG IVP . WILL CONTINUE TO MONITOR.
[2018-07-06 05:00] VITALS: BP 160/76
[2018-07-06] MEDS: SUMAtriptan 50 MG TAB PO PRN (05:19)
[2018-07-06] MEDS: LEVOTHYROXINE 0.1 MG TAB PO SCH (05:54)
[2018-07-06] MEDS ORDERED: HYDROCHLOROTHIAZIDE 25 MG TAB PO ONE (06:00)
--- NOTE | 2018-07-06 06:12 | NUR ---
BLOOD PRESSURE STILL HIGH 177/80,HR-81 , DR. CONTRERAS, RESIDENT MD MADE AWARE. SHE SAID TO GIVE ONE OF THE AM BP MED SCHED COZAAR NOW ANS IF STILL HIGH THEN CAN GIVE THE NORVASC.
[2018-07-06 06:17] LABS: ANION GAP 12.9 (8-16); BASOPHILS # (AUTO) 0.1 K/uL (0.00-0.22); BASOPHILS % (AUTO) 1.3 % (0.0-2.0); CARBON DIOXIDE 25.8 mmol/L (21-32); CHLORIDE 110 mmol/L (98-107); CREATININE 1.2 mg/dL (0.6-1.3); EOSINOPHILS # (AUTO) 0.2 K/uL (0-0.4); GLUCOSE 125 mg/dL (74-106); HEMATOCRIT 42.7 % (36-48); HEMOGLOBIN 14.5 g/dL (12.0-16.0); LYMPHOCYTES % (AUTO) 34.3 % (20.5-51.1); MEAN CORPUSCULAR HEMOGLOBIN 32 pg (27-31); MEAN CORPUSCULAR HGB CONC 34 g/dL (33-37); MEAN CORPUSCULAR VOLUME 93.7 fL (80-94); MONOCYTES # (AUTO) 0.4 K/uL (0.8-1.0); MONOCYTES % (AUTO) 6.9 % (1.7-9.3); NEUTROPHILS # (AUTO) 3.2 K/uL (1.8-7.7); NEUTROPHILS % (AUTO) 54.5 % (42.2-75.2); PLATELET COUNT (AUTO) 243 K/uL (140-450); POTASSIUM 3.7 mmol/L (3.5-5.1); RED BLOOD CELL COUNT(AUTO) 4.56 MIL/uL (4.20-5.40); RED CELL DISTRIBUTION WIDTH 12.2 % (11.6-13.7); SODIUM SERUM 145 mmol/L (136-145); UREA NITROGEN, BLOOD 24 mg/dL (7-18); WHITE BLOOD COUNT (AUTO) 5.8 K/uL (4.8-10.8)
[2018-07-06 06:23] LABS: MAGNESIUM 1.7 mg/dL (1.8-2.4); PHOSPHORUS 2.8 mg/dL (2.5-4.9)
--- NOTE | 2018-07-06 07:11 | NUR ---
DR. JACOBS MADE AWARE ABOUT THE LATEST BP OF 199/89,HR-82,O2 SAT 95% ON ROOM AIR R-20. PT HAS NO C/O OF ANY DISCOMFORT AT THIS TIME. WILL SEE PT.
--- NOTE | 2018-07-06 07:20 | NUR ---
ENDORSED PT IN FAIR CONDITION TO AM NURSE.
[2018-07-06 08:00] VITALS: BP 171/83
[2018-07-06] MEDS ORDERED: LOSARTAN 50 MG TAB PO SCH (09:00)
[2018-07-06] MEDS ORDERED: HYDROCHLOROTHIAZIDE 25 MG TAB PO SCH ×3 (09:00)
[2018-07-06 09:15] VITALS: BP 147/56
[2018-07-06] MEDS: POLYETHYLENE GLYCOL 17 GM/PKT PO SCH (09:44)
[2018-07-06] MEDS: NORTRIPTYLINE 10 MG CAP PO SCH (09:44)
[2018-07-06] MEDS: COLCHICINE 0.6 MG TAB PO SCH (09:44)
[2018-07-06] MEDS: ESCITALOPRAM 20 MG TAB PO SCH (09:44)
[2018-07-06] MEDS: CARISOPRODOL 350 MG TAB PO SCH ×2 (09:44→13:50)
[2018-07-06] MEDS: amLODIPine 5 MG TAB PO SCH (09:45)
--- NOTE | 2018-07-06 09:45 | NUR ---
ADMINISTERED SCHEDULED MEDICATIONS, PT TOLERATED WELL. SCHEDULED HYDROCHLOROTHIAZIDE MEDICATION HELD PER DR. CONTRERAS. PER MD, RECHECK BP IN 1 HOUR AND ADMINISTER HYDROCHLOROTHIAZIDE IF BP IS HIGH.
[2018-07-06] MEDS: ACETAMINOPHEN 325 MG TAB PO PRN (10:06)
[2018-07-06] MEDS ORDERED: ORE25 PO (10:22)
[2018-07-06] MEDS ORDERED: LOSA50TA1 PO (10:22)
[2018-07-06] MEDS ORDERED: MAGNESIUM OXIDE 400 MG TAB PO SCH (11:00)
--- NOTE | 2018-07-06 11:11 | NUR ---
SCHEDULED HYDROCHLOROTHIAZIDE GIVEN PER DR CONTRERAS FOR BP 151/68. SCHEDULED MAG-OX GIVEN PER MD ORDER. PT TOLERATED WELL. NO OTHER NEEDS AT THIS TIME.
--- NOTE | 2018-07-06 11:33 | NUR ---
CM NOTE RECEIVED ORDER FOR HOME HEALTH FOR BP MONITORING AND MEDICATION COMPLIANCE WITH [facility]. I CONFIRMED PATIENT'S ADDRESS. FAXED ORDER AND CLINICAL PACKET TO [facility]. PER [facility] OF [facility]# [phone], THEY ARE ACCEPTING THE PATIENT AND THEY HAVE A NURSE TO SEE THE PATIENT TOMORROW[facility]
[2018-07-06 12:00] VITALS: BP 141/75
[2018-07-06] MEDS ORDERED: IBUPROFEN 800 MG TAB PO PRN (13:00)
[2018-07-06] MEDS ORDERED: APAP/BUTAL/CAFF 325/50/40 MG 1 TAB PO SCH (13:15)
--- NOTE | 2018-07-06 13:54 | NUR ---
ADMINISTERED SCHEDULED MEDICATIONS, PT TOLERATED WELL. NO OTHER NEEDS AT THIS TIME.
--- NOTE | 2018-07-06 15:50 | NUR ---
D/C INSTRUCTIONS AND PAPERWORK GIVEN TO PT AND DAUGHTER. PT AND DAUGHTER VERBALIZED UNDERSTANDING. QUESTIONS AND CONCERNS WERE ANSWERED. PT REFUSED PNEUMONIA VACCINE, WANTS TO RECEIVE IT FROM PCP. D/C IV, CATHETER TIP INTACT, BLEEDING CONTROLLED. PT AMBULATED TO THE WHEELCHAIR WITH ASSIST. PT STABLE, NO SIGNS OF DISTRESS NOTED. A&O X4. ESCORTED PT TO THE LOBBY.
== END 2018-07-06 15:50 | disposition home health service (06) | DRG 305 ==
LOC: MED 03:00 → MTU 05:22
PROVIDERS: ADMIT General Practice; ATTEND General Practice
DX: I16.0 Hypertensive urgency (principal); J44.9 Chronic obstructive pulmonary disease, unspecified; E78.5 Hyperlipidemia, unspecified; I25.10 Atherosclerotic heart disease of native coronary artery without angina pectoris; I10 Essential (primary) hypertension; G89.4 Chronic pain syndrome; E03.9 Hypothyroidism, unspecified; M10.9 Gout, unspecified; F41.9 Anxiety disorder, unspecified; F32.9 Major depressive disorder, single episode, unspecified; G43.909 Migraine, unspecified, not intractable, without status migrainosus; E83.42 Hypomagnesemia; M62.838 Other muscle spasm; I27.21 Secondary pulmonary arterial hypertension; Z86.73 Personal history of transient ischemic attack (TIA), and cerebral infarction without residual deficits; Z88.0 Allergy status to penicillin; Z88.8 Allergy status to other drugs, medicaments and biological substances; Z87.891 Personal history of nicotine dependence; Z91.19 Patient's noncompliance with other medical treatment and regimen
CPT/HCPCS: 36415; 70450; 71045; 80048; 80053; 81001; 82150; 82550; 82553; 83036; 83690; 83735; 83880; 84100; 84443; 84484; 85025; 85610; 85730; 87081; 93005; J0360; J1885; J7030; Q0092